=== PATIENT | male | born 1970 | race Caucasian/White ===

== ENCOUNTER 2021-03-21 15:54 | Emergency (ER) | payer BC ==
[~2021-03-21] VITALS: Ht 177.8 cm; Wt 79.4 kg
[~2021-03-21 15:54] MED LIST: BUPROPRION; VICODIN 5-5001 EACH PO
[2021-03-21] MEDS ORDERED: LIPITOR10 MG PO (16:11)
[2021-03-21 17:50] VITALS: BP 152/96
== END 2021-03-21 17:52 | disposition left against medical advice (07) ==
LOC: M.ERS 15:54
DX: Z53.21 Procedure and treatment not carried out due to patient leaving prior to being seen by health care provider (principal)